=== PATIENT | female | born 1995 | race Caucasian/White ===

== ENCOUNTER 2016-08-26 17:02 | Emergency (ER) | payer OTHER ==
[~2016-08-26] VITALS: Ht 157.4 cm; Wt 49.9 kg
[~2016-08-26 17:02] MED LIST: ALAVERT10 MG PO; ALBUTEROL0.09 MG/A2 INH; AMPHETAMINE SAL15 M1 PO; AMPHETAMINE/DEX20 MG PO; AVPAK AZITHROM250 M1 PO; BACITRACIN 5003.5 GM; BIRTH CONTROL1 EAC1 PO; COLACE100 MG PO; DOXYCYCLINE100 M3 PO; FEOSOL300 MG PO; FLAGYL500 MG PO; FLONASE 0.05% 121 EA NAS; IBUPROFEN600 MG PO; KEFLEX500 MG PO; MACROBID100 M1 PO; NITROFURANTOIN100 MG PO; OMNICEF300 MG PO; PERCOCET 325 MG1 TA2 PO; PERCOCET 325 MG1 TA7 PO; PREDNICOT20 MG PO; PRENATAL1 TA1 PO; PROTONIX40 MG PO; PYRIDIUM100 MG PO; PYRIDIUM200 MG PO; Percocet 325 MG1 TAB PO; VIBRAMYCIN100 MG PO; VICODIN 5/500 505 MG PO; ZITHROMAX Z PA250 MG PO; ZOVIRAX800 MG PO; ZYRTEC10 MG PO; Zofran4 MG PO
[2016-08-26 17:34] LABS: BASO % 0.8 % (0.0-1.0); EOS # 0.2 10*3/uL (0.0-0.4); EOS % 4.5 % (1.0-4.0); HEMATOCRIT 41.8 % (37.0-47.0); HEMOGLOBIN 14.1 g/dl (12.0-16.0); LYMPH # 1.9 10*3/uL (1.3-4.4); LYMPH % 35.4 % (27.0-41.0); MEAN CELL VOLUME 87.6 fl (81.0-99.0); MEAN CORPUSCULAR HGB 29.6 pg (27.0-31.0); MEAN CORPUSCULAR HGB CONC 33.7 g/dl (33.0-37.0); MEAN PLATELET VOLUME 10.1 fl (9.6-12.3); MONO # 0.3 10*3/uL (0.1-1.0); MONO % 6.4 % (3.0-9.0); NEUT # 2.8 10*3/uL (2.3-7.9); NEUT % 52.7 % (47.0-73.0); PLATELET COUNT AUTOMATED 168 10*3/uL (130-400); RED BLOOD COUNT 4.77 10*6/uL (4.10-5.10); RED CELL DISTRI WIDTH 11.8 % (0-14.5); WHITE BLOOD COUNT 5.3 10*3/uL (4.8-10.8)
[2016-08-26 17:51] LABS: ALBUMIN 3.8 gm/dl (3.1-4.5); ALKALINE PHOSPHATASE 87 U/L (45-117); BILIRUBIN, TOTAL 0.2 mg/dl (0.2-1.0); BUN 18 mg/dl (7-24); CARBON DIOXIDE 28 mmol/L (21-32); CHLORIDE 105 mmol/L (98-107); EST GLOM FILT AFRICAN AMERICAN > 60 ml/min; GLUCOSE 94 mg/dL (65-99); POTASSIUM 3.7 mmol/L (3.5-5.1); SGOT/AST 18 IU/L (3-35); SGPT/ALT 15 U/L (12-78); SODIUM 140 mmol/L (136-145); TOTAL PROTEIN 7.2 gm/dL (6.4-8.2)
[2016-08-26 18:36] LABS: BILIRUBIN NEGATIVE (NEGATIVE); BLOOD NEGATIVE (NEGATIVE); CLARITY CLEAR (CLEAR); COLOR YELLOW (YELLOW); GLUCOSE NEGATIVE (NEGATIVE); KETONE NEGATIVE (NEGATIVE); LEUKO ESTERASE NEGATIVE (NEGATIVE); NITRITE NEGATIVE (NEGATIVE); PROTEIN NEGATIVE (NEGATIVE); UROBILINOGEN 0.2 E.U./dl (0.2-1.0)
[2016-08-26 18:46] LABS: BACTERIA 2+; WBC 0-2 wbc/hpf (0-5)
[2016-08-26 18:47] LABS: URINE REFLEX COMMENT YES (NO)
== END 2016-08-26 19:49 | disposition home or self-care (01) ==
LOC: ED 17:02
PROVIDERS: Registered Nurse
DX: R19.5 Other fecal abnormalities (principal); R10.30 Lower abdominal pain, unspecified; F17.200 Nicotine dependence, unspecified, uncomplicated; Z88.0 Allergy status to penicillin; Z88.1 Allergy status to other antibiotic agents; Z88.2 Allergy status to sulfonamides; Z88.6 Allergy status to analgesic agent; Z88.8 Allergy status to other drugs, medicaments and biological substances

== ENCOUNTER 2017-01-19 04:29 | Inpatient (IN) | payer OTHER ==
[~2017-01-19] VITALS: Ht 157.4 cm; Wt 46.0 kg
[2017-01-19] VITALS (11 sets, daily range): BP systolic 96–137; BP diastolic 46–90
--- NOTE | ~2017-01-19 | O ---
[place], [place] OPERATIVE NOTE [facility]: [id number] UNIT #: [id number] ROOM: 408 DOCTOR: HEATH PANTOJA MD BIRTHDATE: [birth year] DOS: 01/19/2017 INDICATIONS: The patient is a 21-year-old was presented with nausea, vomiting, undergoing investigation. Her basic studies have been negative. No acute findings on radiologic and laboratory results. Today, the patient has been on power drinks, sodas, and smoking. PROCEDURE: Today's procedure part of investigation is panendoscopy plus biopsy. PREMEDICATION: Versed and Diprivan. SCOPE: Olympus forward-viewing gastroscope Q10 video. REPORT: After putting the patient in left lateral position and application of lubricant to the scope, the scope was introduced. Thereafter, under direct visualization, advanced through the length of esophagus without difficulty. Esophagus and cervicothoracic were careful examined. Gastric pouch was entered. Gastritis was seen. Duodenal bulb, second and third part within normal limits. Small hiatal hernia about 1.5 cm was noticed. Otherwise, no acute pathology. The patient extubated, tolerated procedure well. IMPRESSION: Gastritis, small hiatal hernia. PLAN AND DISCUSSION: Omeprazole 20 mg 1 every day, would suffice management. The patient to abstain from power drink consumption and follow up as outpatient. HEATH PANTOJA MD CM:OPRECORD:OPERATIVE NOTE 1307 1327 HEATH PANTOJA MD 01/19/17 1328 interface
--- NOTE | ~2017-01-19 | CON ---
[place], [place] REPORT OF CONSULTATION [id number] UNIT #: [id number] ROOM: 408 DOCTOR: HEATH PANTOJA MD BIRTHDATE: [birth year] DOS: 01/19/2017 HISTORY OF PRESENT ILLNESS: This is a 21-year-old patient who has presented with chief complaint of nausea, vomiting, epigastric distress which has persisted. She is still nauseated. She has been on Zofran and Protonix therapy. The patient had to be admitted for definitive evaluation. PAST MEDICAL HISTORY: Associated with nonspecific abdominal pain. PAST SURGICAL HISTORY: None. ALLERGIES: PENICILLIN, SULFA, ANTIBIOTIC, HYDROCODONE, CIPROFLOXACIN, BENZOCAINE. SOCIAL HISTORY: Smoker, nonalcohol consumer, drinks energy drink daily and soda along with meals. HOME MEDICATIONS: Z-APOLONIA as well as amphetamine and dextroamphetamine combination. FAMILY HISTORY: Noncontributory. REVIEW OF SYSTEMS: HEENT: Denies double vision, blurred vision. RESPIRATORY: Denies shortness of breath. CARDIOVASCULAR: Denies chest pain. DIGESTIVE SYSTEM: Nausea, vomiting, epigastric distress. Abdominal pain. PHYSICAL EXAMINATION: VITAL SIGNS: Stable. HEENT: Head normocephalic, nontraumatic. Mouth and buccal mucosa benign. NECK: Supple, no thyromegaly, no cervical lymphadenopathy. CHEST: Symmetric anatomy, equal expansion. No wheeze, no rhonchi. HEART: Normal sinus rhythm, no gallop or murmur. ABDOMEN: Soft. No hepato-organomegaly. Bowel sounds present. No epigastric pain. EXTREMITIES: No cyanosis, no pedal edema. NEUROLOGIC: Alert, oriented to time, place, person. IMPRESSION: Nausea, vomiting, epigastric distress, could be secondary to the antibiotic and energy drink and carbonated beverages as well as medications that she is taking. PLAN AND DISCUSSION: We are going to organize endoscopic assessment of the upper GI tract and based on the findings, we will make arrangement for discharge or otherwise. The patient's records and labs and radiologic studies have been reviewed. CT scan of the abdomen, urinalysis, CBC, chemistry, gallbladder sonogram, all have been unremarkable as far as indicating any acute pathology. Her beta-hCG has been negative. Therefore, we will proceed with endoscopy. [place], [place] REPORT OF CONSULTATION NAME: NORI PATTERSON UNIT #: [id number] ROOM: 408 DOCTOR: SCARLETT COOPER,HEATH BIRTHDATE: [birth year] HEATH PANTOJA MD CM:CONSTR:REPORT OF CONSULTATION 1249 01/19/17 1635 interface
--- NOTE | 2017-01-19 05:20 | NUR ---
PT HAD 50ML EMESIS OF CLEAR GREEN LIQUID AND WATERY STOOLS IN BATHROOM. WILL CONTINUE TO MONITOR.
[2017-01-19 05:27] LABS: BILIRUBIN 1+ (NEGATIVE); BLOOD NEGATIVE (NEGATIVE); CLARITY CLOUDY (CLEAR); COLOR YELLOW (YELLOW); GLUCOSE NEGATIVE (NEGATIVE); KETONE TRACE (NEGATIVE); LEUKO ESTERASE TRACE (NEGATIVE); NITRITE NEGATIVE (NEGATIVE); SPECIFIC GRAVITY >= 1.030 (1.005-1.030); UROBILINOGEN 0.2 E.U./dl (0.2-1.0)
[2017-01-19 05:27] LABS: HEMATOCRIT 48.3 % (37.0-47.0); HEMOGLOBIN 16.3 g/dl (12.0-16.0); MEAN CELL VOLUME 89.6 fl (81.0-99.0); MEAN CORPUSCULAR HGB 30.2 pg (27.0-31.0); MEAN CORPUSCULAR HGB CONC 33.7 g/dl (33.0-37.0); MEAN PLATELET VOLUME 9.7 fl (9.6-12.3); PLATELET COUNT AUTOMATED 153 10*3/uL (130-400); RED BLOOD COUNT 5.39 10*6/uL (4.10-5.10); RED CELL DISTRI WIDTH 12.4 % (0-14.5); WHITE BLOOD COUNT 11.3 10*3/uL (4.8-10.8)
[2017-01-19 05:34] LABS: BACTERIA 3+; EPITHELIAL CELLS 35-40
[2017-01-19 05:45] LABS: ALBUMIN 4.4 gm/dl (3.1-4.5); ALKALINE PHOSPHATASE 105 U/L (45-117); BUN 14 mg/dl (7-24); CHLORIDE 105 mmol/L (98-107); CREATININE 0.89 mg/dL (0.55-1.02); LIPASE 125 U/L (73-393); SGOT/AST 18 IU/L (3-35); SGPT/ALT 21 U/L (12-78); SODIUM 141 mmol/L (136-145); TOTAL PROTEIN 7.9 gm/dL (6.4-8.2)
--- NOTE | 2017-01-19 05:45 | NUR ---
PT STATES NAUSEA HAS DECREASED SOME BUT SHE IS STILL FEELING NAUSEATED.
[2017-01-19 05:46] LABS: PLATELET SUFFICIENCY NORMAL (NORMAL); TOTAL CELLS COUNTED 100 #CELLS
--- NOTE | 2017-01-19 06:19 | NUR ---
PT CONTINUES TO FEEL NAUSEATED AND HAS "WEIRD FEELING IN THROAT." COUGHING CONTINUOUSLY.
--- NOTE | 2017-01-19 06:55 | NUR ---
PT STATES SHE IS FEELING BETTER AT THIS TIME.
--- NOTE | 2017-01-19 07:32 | NUR ---
PT RESTING QUIETLY,NO C/O.VITALS STABLE---LIANNE RODRIGUEZ RN
--- NOTE | 2017-01-19 08:42 | NUR ---
PT TO ULTRASOUND AT THIS TIME----LIANNE RODRIGUEZ RN
--- NOTE | 2017-01-19 09:22 | NUR ---
PT RESTING AT THIS TIME.SHE IS BEING ADMITTED.--LIANNE RODRIGUEZ RN
--- NOTE | 2017-01-19 09:44 | NUR ---
Time: 929 A 21 year old FEMALE admitted to under services of CINDY BELCHER DO, Pt. arrived via OTHER from ER. Chief complaint: DAPHNE MOSER
--- NOTE | 2017-01-19 10:13 | NUR ---
DR. PANTOJA NOTIFIED OF PATIENT CONSULT. THE ORDERED A BETA HCG TEST AND STATED TO NOTIFY HIM OF THE RESULTS. HE ALSO ORDERED THE PATIENT TO BE NPO FOR POSSIBLE EGD. NO OTHER CONCERNS FROM THE DOCTOR.
--- NOTE | 2017-01-19 12:27 | NUR ---
PT LEFT FLOOR FOR EGD.
--- NOTE | 2017-01-19 13:37 | NUR ---
SURGERY CALLED AND STATED THAT THE PATIENT'S EGD WAS COMPLETED. SEE DR. PANTOJA'S NOTES FOR DIAGNOSIS. SCRIPT LEFT IN PATIENTS CHART. PATIENT CLEARED FOR DISCHARGE FROM DR. PANTOJA. ROSA LOYD NP NOTIFIED.
[2017-01-19] MEDS ORDERED: ZOFRAN ODT4 MG SL (14:42)
--- NOTE | 2017-01-19 15:54 | NUR ---
Discharge instructions reviewed with patient/family. Patient receptive and verbalizes understanding. Follow-up care arranged. Written instructions given to patient/family. DAPHNE SCHROEDER
== END 2017-01-19 15:56 | disposition home or self-care (01) | DRG 392 ==
LOC: ED 04:29 → EDHOLD 08:19 → 4E 08:22
PROVIDERS: Emergency Medicine Emergency Medical Services; ADMIT Internal Medicine
PROC: 0DB68ZX Excision of Stomach, Via Natural or Artificial Opening Endoscopic, Diagnostic (ICD-10-PCS; principal; 2017-01-19)
DX: K29.70 Gastritis, unspecified, without bleeding (principal); F17.200 Nicotine dependence, unspecified, uncomplicated; M54.5 Low back pain; R82.71 Bacteriuria; R73.9 Hyperglycemia, unspecified; K44.9 Diaphragmatic hernia without obstruction or gangrene; Z88.8 Allergy status to other drugs, medicaments and biological substances; Z88.2 Allergy status to sulfonamides; Z79.899 Other long term (current) drug therapy; Z82.49 Family history of ischemic heart disease and other diseases of the circulatory system; Z82.3 Family history of stroke; Z88.0 Allergy status to penicillin

== ENCOUNTER → 2017-07-13 | Outpatient (CLI) | payer OTHER ==
[~2017-07-13] MED LIST changes: +ZOFRAN ODT4 MG SL
[2017-07-13 10:10] LABS: HEMATOCRIT 44.4 % (37.0-47.0); HEMOGLOBIN 14.7 g/dl (12.0-16.0); MEAN CELL VOLUME 87.7 fl (81.0-99.0); MEAN CORPUSCULAR HGB 29.1 pg (27.0-31.0); MEAN CORPUSCULAR HGB CONC 33.1 g/dl (33.0-37.0); MEAN PLATELET VOLUME 9.7 fl (9.6-12.3); RED BLOOD COUNT 5.06 10*6/uL (4.10-5.10); WHITE BLOOD COUNT 5.1 10*3/uL (4.8-10.8)
[2017-07-13 10:40] LABS: ALBUMIN 4.3 gm/dl (3.1-4.5); ALKALINE PHOSPHATASE 101 U/L (45-117); BUN 18 mg/dl (7-24); CHLORIDE 105 mmol/L (98-107); CHOLESTEROL 142 mg/dL (<200); CREATININE 0.76 mg/dL (0.55-1.02); HDL CHOLESTEROL 61 mg/dl (40-60); LDL CHOLESTEROL 62 mg/dL (9-159); SGOT/AST 19 IU/L (3-35); SGPT/ALT 19 U/L (12-78); SODIUM 138 mmol/L (136-145); TOTAL PROTEIN 7.6 gm/dL (6.4-8.2); TRIGLYCERIDES 95 mg/dl (<150); VLDL CHOLESTEROL 19 mg/dL (6-40)
== END | disposition home or self-care (01) ==
LOC: LAB 09:48
PROVIDERS: Family Medicine
DX: Z13.220 Encounter for screening for lipoid disorders (principal); E55.9 Vitamin D deficiency, unspecified; R53.83 Other fatigue; B37.3 Candidiasis of vulva and vagina; R79.89 Other specified abnormal findings of blood chemistry

== ENCOUNTER → 2017-08-24 | Outpatient (CLI) | payer OTHER ==
[2017-08-24 17:41] LABS: HEMOGLOBIN 14.2 g/dl (12.0-16.0); MEAN CELL VOLUME 90.9 fl (81.0-99.0); MEAN PLATELET VOLUME 9.7 fl (9.6-12.3); RED BLOOD COUNT 4.73 10*6/uL (4.10-5.10); RED CELL DISTRI WIDTH 12.1 % (0-14.5); WHITE BLOOD COUNT 7.5 10*3/uL (4.8-10.8)
[2017-08-24 17:57] LABS: ALBUMIN 4.4 gm/dl (3.1-4.5); ALKALINE PHOSPHATASE 89 U/L (45-117); BUN 15 mg/dl (7-24); CHLORIDE 108 mmol/L (98-107); CREATININE 0.67 mg/dL (0.55-1.02); POTASSIUM 3.8 mmol/L (3.5-5.1); SGOT/AST 17 IU/L (3-35); SGPT/ALT 17 U/L (12-78); SODIUM 141 mmol/L (136-145); TOTAL PROTEIN 7.2 gm/dL (6.4-8.2)
== END | disposition home or self-care (01) ==
LOC: LAB 16:59
PROVIDERS: Family Medicine
DX: E22.1 Hyperprolactinemia (principal)

== ENCOUNTER 2017-09-16 21:17 | Emergency (ER) | payer OTHER ==
[~2017-09-16] VITALS: Ht 157.4 cm; Wt 54.4 kg
[2017-09-16 21:37] LABS: BILIRUBIN NEGATIVE (NEGATIVE); BLOOD NEGATIVE (NEGATIVE); CLARITY CLEAR (CLEAR); COLOR YELLOW (YELLOW); GLUCOSE NEGATIVE (NEGATIVE); KETONE NEGATIVE (NEGATIVE); LEUKO ESTERASE NEGATIVE (NEGATIVE); NITRITE NEGATIVE (NEGATIVE); SPECIFIC GRAVITY >= 1.030 (1.005-1.030); UROBILINOGEN 0.2 E.U./dl (0.2-1.0)
[2017-09-16 21:45] LABS: BACTERIA 1+; EPITHELIAL CELLS 0-2; MUCOUS TRACE; RBC 0-2 rbc/hpf (0-2); WBC 0-2 wbc/hpf (0-5)
[2017-09-16 22:27] LABS: BASO # 0.1 10*3/uL (0.0-0.1); BASO % 0.8 % (0.0-1.0); EOS # 0.2 10*3/uL (0.0-0.4); EOS % 3.5 % (1.0-4.0); HEMATOCRIT 43.2 % (37.0-47.0); HEMOGLOBIN 14.2 g/dl (12.0-16.0); LYMPH # 2.3 10*3/uL (1.3-4.4); LYMPH % 37.8 % (27.0-41.0); MEAN CELL VOLUME 89.1 fl (81.0-99.0); MEAN CORPUSCULAR HGB 29.3 pg (27.0-31.0); MEAN CORPUSCULAR HGB CONC 32.9 g/dl (33.0-37.0); MEAN PLATELET VOLUME 9.8 fl (9.6-12.3); MONO # 0.4 10*3/uL (0.1-1.0); MONO % 6.7 % (3.0-9.0); NEUT # 3.1 10*3/uL (2.3-7.9); PLATELET COUNT AUTOMATED 152 10*3/uL (130-400); RED BLOOD COUNT 4.85 10*6/uL (4.10-5.10); RED CELL DISTRI WIDTH 11.9 % (0-14.5); WHITE BLOOD COUNT 6.1 10*3/uL (4.8-10.8)
[2017-09-16 22:42] LABS: ALBUMIN 4.5 gm/dl (3.1-4.5); ALKALINE PHOSPHATASE 84 U/L (45-117); BUN 14 mg/dl (7-24); CHLORIDE 104 mmol/L (98-107); CREATININE 0.81 mg/dL (0.55-1.02); LIPASE 102 U/L (73-393); POTASSIUM 3.8 mmol/L (3.5-5.1); SGOT/AST 18 IU/L (3-35); SGPT/ALT 17 U/L (12-78); SODIUM 140 mmol/L (136-145); TOTAL PROTEIN 7.4 gm/dL (6.4-8.2)
[2017-09-16 22:44] LABS: B-hCG (QUALITATIVE) NEGATIVE (NEGATIVE)
== END 2017-09-17 01:44 | disposition home or self-care (01) ==
LOC: ED 21:17
PROVIDERS: Emergency Medicine Emergency Medical Services; Physician Assistant
DX: R10.2 Pelvic and perineal pain (principal); R11.0 Nausea; G89.29 Other chronic pain; Z79.899 Other long term (current) drug therapy; Z88.0 Allergy status to penicillin; Z88.2 Allergy status to sulfonamides; Z88.8 Allergy status to other drugs, medicaments and biological substances; Z88.1 Allergy status to other antibiotic agents

== ENCOUNTER → 2017-09-20 | Outpatient (CLI) | payer OTHER ==
[~2017-09-20] MED LIST changes: +PROVENTIL HFA6.7 GM INH; +ZITHROMAX500 MG PO
== END | disposition home or self-care (01) ==
LOC: US 13:57
DX: R10.2 Pelvic and perineal pain (principal)

== ENCOUNTER 2017-10-08 15:25 | Emergency (ER) | payer OTHER ==
[~2017-10-08] VITALS: Ht 157.4 cm; Wt 54.4 kg
[~2017-10-08 15:25] MED LIST changes: -PROVENTIL HFA6.7 GM INH; -ZITHROMAX500 MG PO
[2017-10-08] MEDS ORDERED: PROVENTIL HFA6.7 GM INH (16:21)
[2017-10-08] MEDS ORDERED: ZITHROMAX500 MG PO (16:21)
== END 2017-10-08 16:24 | disposition home or self-care (01) ==
LOC: ED 15:25
DX: J40 Bronchitis, not specified as acute or chronic (principal); R11.0 Nausea; R07.89 Other chest pain; Z79.899 Other long term (current) drug therapy; Z79.2 Long term (current) use of antibiotics; Z88.0 Allergy status to penicillin; Z88.2 Allergy status to sulfonamides; Z88.1 Allergy status to other antibiotic agents; Z88.8 Allergy status to other drugs, medicaments and biological substances

== ENCOUNTER 2018-03-28 10:41 | Emergency (ER) | payer OTHER ==
[~2018-03-28] VITALS: Wt 61.2 kg
--- NOTE | ~2018-03-28 | EKG ---
[place], [place] ELECTROCARDIOGRAM REPORT NAME: NORI PATTERSON UNIT #: [id number] ROOM: DOCTOR: EPIPHANY DRAFT REPORT BIRTHDATE: [birth year] [facility] Test Date: 2018-03-28 Test Time: 13:18:29 Pat Name: NORI PATTERSON Department: Room: Gender: F Ultrasound Spec: YAW : 1995 Requested By: ANASTASIIA JOHNSON Order Number: [id number] Reading MD: Phyllis Harris MD Measurements Intervals [place] Rate: 112 P: 58 UT: 160 QRS: 36 QRSD: 80 T: 11 QT: 326 QTc: 445 Interpretive Statements Sinus tachycardia Borderline low voltage, extremity leads Flat T waves in V3-6 Baseline wander in lead(s) V2 Electronically Signed On 03-31-2018 9:38:54 PST by Phyllis Harris MD CM:EKGRPT:ELECTROCARDIOGRAM REPORT 1318 0938 ANASTASIIA JOHNOSN EPIPHANY DRAFT REPORT ANASTASIIA JOHNSON
[~2018-03-28 10:41] MED LIST changes: +PROVENTIL HFA6.7 GM INH; +ZITHROMAX500 MG PO
[2018-03-28 11:14] LABS: HEMATOCRIT 39.9 % (37.0-47.0); HEMOGLOBIN 13.5 g/dl (12.0-16.0); MEAN CELL VOLUME 88.5 fl (81.0-99.0); MEAN CORPUSCULAR HGB 29.9 pg (27.0-31.0); MEAN CORPUSCULAR HGB CONC 33.8 g/dl (33.0-37.0); MEAN PLATELET VOLUME 9.4 fl (9.6-12.3); PLATELET COUNT AUTOMATED 143 10*3/uL (130-400); RED BLOOD COUNT 4.51 10*6/uL (4.10-5.10); WHITE BLOOD COUNT 8.1 10*3/uL (4.8-10.8)
[2018-03-28 11:33] LABS: PLATELET SUFFICIENCY NORMAL (NORMAL); TOTAL CELLS COUNTED 100 #CELLS
[2018-03-28 11:35] LABS: ALBUMIN 3.9 gm/dl (3.1-4.5); ALKALINE PHOSPHATASE 83 U/L (45-117); BUN 16 mg/dl (7-24); CHLORIDE 110 mmol/L (98-107); CREATININE 0.76 mg/dL (0.55-1.02); POTASSIUM 3.7 mmol/L (3.5-5.1); SGOT/AST 12 IU/L (3-35); SGPT/ALT 15 U/L (12-78); SODIUM 143 mmol/L (136-145); TOTAL PROTEIN 6.6 gm/dL (6.4-8.2)
[2018-03-28] MEDS ORDERED: PREDNISONE50 MG PO (15:04)
[2018-03-28] MEDS ORDERED: FLONASE ALLERG9.9 ML NAS (15:04)
[2018-03-28] MEDS ORDERED: ZYRTEC10 M3 PO (15:04)
== END 2018-03-28 15:43 | disposition home or self-care (01) ==
LOC: ED 10:41
PROVIDERS: Nurse Practitioner Family
DX: B34.9 Viral infection, unspecified (principal); R51 Headache; R05 Cough; R19.7 Diarrhea, unspecified; Z88.0 Allergy status to penicillin; Z88.2 Allergy status to sulfonamides; Z88.1 Allergy status to other antibiotic agents; Z88.8 Allergy status to other drugs, medicaments and biological substances; Z88.4 Allergy status to anesthetic agent; Z79.899 Other long term (current) drug therapy

== ENCOUNTER → 2018-06-07 | Outpatient (CLI) | payer OTHER ==
[~2018-06-07] MED LIST changes: +BENADRYL ALLERG25 M5 PO; +CEPHALEXIN500 M1 PO; +FLONASE ALLERG9.9 ML NAS; +PREDNISONE50 MG PO; +ZYRTEC10 M3 PO
[2018-06-07 08:58] LABS: HEMATOCRIT 41.5 % (37.0-47.0); HEMOGLOBIN 13.9 g/dl (12.0-16.0); MEAN CELL VOLUME 88.7 fl (81.0-99.0); MEAN CORPUSCULAR HGB 29.7 pg (27.0-31.0); MEAN CORPUSCULAR HGB CONC 33.5 g/dl (33.0-37.0); MEAN PLATELET VOLUME 9.6 fl (9.6-12.3); RED BLOOD COUNT 4.68 10*6/uL (4.10-5.10); RED CELL DISTRI WIDTH 12.1 % (0-14.5); WHITE BLOOD COUNT 3.8 10*3/uL (4.8-10.8)
[2018-06-07 09:18] LABS: ALBUMIN 3.8 gm/dl (3.1-4.5); ALKALINE PHOSPHATASE 87 U/L (45-117); BUN 17 mg/dl (7-24); CHLORIDE 109 mmol/L (98-107); POTASSIUM 4.2 mmol/L (3.5-5.1); SGOT/AST 13 IU/L (3-35); SGPT/ALT 15 U/L (12-78); SODIUM 140 mmol/L (136-145); TOTAL PROTEIN 6.7 gm/dL (6.4-8.2)
[2018-06-07 09:26] LABS: B-hCG (QUALITATIVE) NEGATIVE (NEGATIVE)
[2018-06-07 10:19] LABS: VITAMIN D, 25-HYDROXY 41.8 ng/mL (30-100)
== END | disposition home or self-care (01) ==
LOC: LAB 08:28
PROVIDERS: Family Medicine
DX: N91.2 Amenorrhea, unspecified (principal); R07.9 Chest pain, unspecified; R53.83 Other fatigue

== ENCOUNTER → 2018-07-14 | Outpatient (CLI) | payer OTHER | END | disposition home or self-care (01) | LOC: RAD 08:43 | DX: K21.9 Gastro-esophageal reflux disease without esophagitis (principal); K29.70 Gastritis, unspecified, without bleeding ==

== ENCOUNTER 2018-08-01 14:13 | Emergency (ER) | payer OTHER ==
[~2018-08-01] VITALS: Ht 157.4 cm; Wt 59.0 kg
[~2018-08-01 14:13] MED LIST changes: -BENADRYL ALLERG25 M5 PO; -CEPHALEXIN500 M1 PO
[2018-08-01 14:48] LABS: BASO % 0.5 % (0.0-1.0); EOS # 0.1 10*3/uL (0.0-0.4); EOS % 1.5 % (1.0-4.0); HEMATOCRIT 42.6 % (37.0-47.0); HEMOGLOBIN 14.7 g/dl (12.0-16.0); LYMPH # 1.7 10*3/uL (1.3-4.4); LYMPH % 20.9 % (27.0-41.0); MEAN CORPUSCULAR HGB 30.4 pg (27.0-31.0); MEAN CORPUSCULAR HGB CONC 34.5 g/dl (33.0-37.0); MEAN PLATELET VOLUME 9.6 fl (9.6-12.3); MONO # 0.5 10*3/uL (0.1-1.0); MONO % 6.5 % (3.0-9.0); NEUT # 5.8 10*3/uL (2.3-7.9); NEUT % 70.4 % (47.0-73.0); PLATELET COUNT AUTOMATED 159 10*3/uL (130-400); RED BLOOD COUNT 4.84 10*6/uL (4.10-5.10); RED CELL DISTRI WIDTH 11.8 % (0-14.5); WHITE BLOOD COUNT 8.3 10*3/uL (4.8-10.8)
[2018-08-01 15:03] LABS: ALBUMIN 4.1 gm/dl (3.1-4.5); ALKALINE PHOSPHATASE 72 U/L (45-117); BUN 11 mg/dl (7-24); CHLORIDE 102 mmol/L (98-107); CREATININE 0.64 mg/dL (0.55-1.02); LIPASE 61 U/L (73-393); SGOT/AST 22 IU/L (3-35); SGPT/ALT 27 U/L (12-78); SODIUM 135 mmol/L (136-145); TOTAL PROTEIN 7.3 gm/dL (6.4-8.2)
[2018-08-01 17:22] LABS: BILIRUBIN NEGATIVE (NEGATIVE); BLOOD NEGATIVE (NEGATIVE); CLARITY CLEAR (CLEAR); COLOR YELLOW (YELLOW); GLUCOSE NEGATIVE (NEGATIVE); KETONE 3+ (NEGATIVE); LEUKO ESTERASE 1+ (NEGATIVE); NITRITE POSITIVE (NEGATIVE); PH 6.5 (5.0-9.0); SPECIFIC GRAVITY 1.025 (1.005-1.030); UROBILINOGEN 0.2 E.U./dl (0.2-1.0)
[2018-08-01 17:35] LABS: BACTERIA 4+
[2018-08-01] MEDS ORDERED: BENADRYL ALLERG25 M5 PO (17:57)
[2018-08-01] MEDS ORDERED: MACROBID100 M1 PO (17:57)
== END 2018-08-01 18:02 | disposition home or self-care (01) ==
LOC: ED 14:13
PROVIDERS: Nurse Practitioner Family
DX: O21.9 Vomiting of pregnancy, unspecified (principal); O23.41 Unspecified infection of urinary tract in pregnancy, first trimester; Z79.899 Other long term (current) drug therapy; Z88.0 Allergy status to penicillin; Z88.2 Allergy status to sulfonamides; Z88.1 Allergy status to other antibiotic agents; Z88.5 Allergy status to narcotic agent; Z3A.01 Less than 8 weeks gestation of pregnancy

== ENCOUNTER 2018-09-02 12:25 | Emergency (ER) | payer OTHER ==
[~2018-09-02] VITALS: Ht 157.4 cm; Wt 56.7 kg
[~2018-09-02 12:25] MED LIST changes: +BENADRYL ALLERG25 M5 PO
[2018-09-02] MEDS ORDERED: CEPHALEXIN500 M1 PO (13:00)
== END 2018-09-02 13:09 | disposition home or self-care (01) ==
LOC: ED 12:25
DX: O99.711 Diseases of the skin and subcutaneous tissue complicating pregnancy, first trimester (principal); L08.89 Other specified local infections of the skin and subcutaneous tissue; Z3A.13 13 weeks gestation of pregnancy; Z79.899 Other long term (current) drug therapy; Z88.0 Allergy status to penicillin; Z88.2 Allergy status to sulfonamides; Z88.8 Allergy status to other drugs, medicaments and biological substances

== ENCOUNTER → 2019-11-09 | Outpatient (CLI) | payer OTHER ==
[~2019-11-09] MED LIST changes: +CEPHALEXIN500 M1 PO
== END | disposition home or self-care (01) ==
LOC: COVID19 09:02
PROVIDERS: ATTEND Family Medicine
DX: Z11.59 Encounter for screening for other viral diseases (principal)

== ENCOUNTER 2019-12-24 18:42 | Emergency (ER) | payer OTHER ==
[~2019-12-24] VITALS: Ht 157.4 cm; Wt 72.6 kg
== END 2019-12-24 21:27 | disposition home or self-care (01) ==
LOC: ED 18:42
DX: S16.1XXA Strain of muscle, fascia and tendon at neck level, initial encounter (principal); S80.12XA Contusion of left lower leg, initial encounter; S00.83XA Contusion of other part of head, initial encounter; F17.200 Nicotine dependence, unspecified, uncomplicated; Z88.0 Allergy status to penicillin; Z88.2 Allergy status to sulfonamides; Z88.1 Allergy status to other antibiotic agents; Z88.8 Allergy status to other drugs, medicaments and biological substances; Z88.4 Allergy status to anesthetic agent; Z79.899 Other long term (current) drug therapy; V43.52XA Car driver injured in collision with other type car in traffic accident, initial encounter; Y93.89 Activity, other specified; Y92.89 Other specified places as the place of occurrence of the external cause; Y99.8 Other external cause status

== ENCOUNTER → 2020-03-11 | Outpatient (CLI) | payer OTHER | END | disposition home or self-care (01) | LOC: COVID19 14:48 | PROVIDERS: ATTEND Family Medicine | DX: Z20.822 Contact with and (suspected) exposure to COVID-19 (principal) ==

== ENCOUNTER → 2021-07-06 | Outpatient (CLI) | payer OTHER ==
[2021-07-06 11:21] LABS: MEAN CELL VOLUME 87.4 fl (81.0-99.0); MEAN CORPUSCULAR HGB 28.4 pg (27.0-31.0); MEAN CORPUSCULAR HGB CONC 32.4 g/dl (33.0-37.0); RED BLOOD COUNT 4.69 10*6/uL (4.10-5.10); RED CELL DISTRI WIDTH 12.6 % (0-14.5); WHITE BLOOD COUNT 8.4 10*3/uL (4.8-10.8)
[2021-07-06 11:40] LABS: BUN 19 mg/dl (7-24); CHLORIDE 106 mmol/L (98-107); CREATININE 1.02 mg/dL (0.55-1.02); LIPASE 104 U/L (73-393); POTASSIUM 3.9 mmol/L (3.5-5.1); SGOT/AST 11 IU/L (3-35); SGPT/ALT 15 U/L (12-78); SODIUM 141 mmol/L (136-145)
[2021-07-06 11:41] LABS: ALKALINE PHOSPHATASE 81 U/L (45-117)
== END | disposition home or self-care (01) ==
LOC: LAB 10:55
PROVIDERS: ATTEND Family Medicine
DX: Z00.00 Encounter for general adult medical examination without abnormal findings (principal); R10.9 Unspecified abdominal pain; E55.9 Vitamin D deficiency, unspecified; R10.816 Epigastric abdominal tenderness

== ENCOUNTER 2021-12-01 08:19 | Emergency (ER) | payer OTHER ==
[~2021-12-01] VITALS: Ht 157.4 cm; Wt 54.4 kg
[2021-12-01] MEDS ORDERED: VIBRA-TAB100 MG PO (13:11)
== END 2021-12-01 13:25 | disposition home or self-care (01) ==
LOC: ED 08:19
DX: J32.9 Chronic sinusitis, unspecified (principal); Z20.822 Contact with and (suspected) exposure to COVID-19; Z79.899 Other long term (current) drug therapy; Z88.0 Allergy status to penicillin; Z88.2 Allergy status to sulfonamides; Z88.5 Allergy status to narcotic agent

== ENCOUNTER → 2021-12-10 | Outpatient (CLI) | payer OTHER ==
[~2021-12-10] MED LIST changes: +VIBRA-TAB100 MG PO
[2021-12-10 16:11] LABS: HEMATOCRIT 45.4 % (37.0-47.0); MEAN CELL VOLUME 88.5 fl (81.0-99.0); MEAN CORPUSCULAR HGB 28.3 pg (27.0-31.0); MEAN CORPUSCULAR HGB CONC 31.9 g/dl (33.0-37.0); RED BLOOD COUNT 5.13 10*6/uL (4.10-5.10); RED CELL DISTRI WIDTH 12.7 % (0-14.5); WHITE BLOOD COUNT 7.8 10*3/uL (4.8-10.8)
[2021-12-10 16:31] LABS: VITAMIN D, 25-HYDROXY 44.2 ng/mL (30-100)
[2021-12-10 16:40] LABS: CHLORIDE 106 mmol/L (98-107); POTASSIUM 4.4 mmol/L (3.5-5.1); SGOT/AST 14 IU/L (3-35); SGPT/ALT 23 U/L (12-78); SODIUM 137 mmol/L (136-145)
[2021-12-10 16:41] LABS: ALKALINE PHOSPHATASE 99 U/L (45-117)
[2021-12-10 17:57] LABS: BUN 18 mg/dl (7-24); CHOLESTEROL 157 mg/dL (<200); CREATININE 0.93 mg/dL (0.55-1.02); FREE T4 0.87 ng/dl (0.76-1.46); LDL CHOLESTEROL 64 mg/dL (9-159); THYROID STIM HORMONE (HS) 0.697 uIU/ml (0.358-4.75); TRIGLYCERIDES 64 mg/dl (<150)
== END | disposition home or self-care (01) ==
LOC: LAB 15:22
PROVIDERS: ATTEND Family Medicine
DX: Z00.00 Encounter for general adult medical examination without abnormal findings (principal); R41.3 Other amnesia; E55.9 Vitamin D deficiency, unspecified; R00.2 Palpitations; R53.83 Other fatigue; R41.9 Unspecified symptoms and signs involving cognitive functions and awareness

== ENCOUNTER → 2021-12-31 | Outpatient (CLI) | payer OTHER | END | disposition home or self-care (01) | LOC: CT 11:00 | PROVIDERS: ATTEND Family Medicine | DX: R51.9 Headache, unspecified (principal) ==

== ENCOUNTER 2022-05-19 08:10 | Emergency (ER) | payer OTHER ==
[~2022-05-19] VITALS: Wt 52.2 kg
[2022-05-19 08:51] LABS: BILIRUBIN Negative (Negative); BLOOD Negative (Negative); CLARITY Clear (Clear); COLOR Yellow (Yellow); GLUCOSE Negative (Negative); KETONE Negative (Negative); LEUKO ESTERASE Negative (Negative); NITRITE Negative (Negative); UROBILINOGEN 0.2 E.U./dl (0.0-1.0)
[2022-05-19 09:01] LABS: BASO % 0.2 % (0.0-1.0); EOS # 0.1 10*3/uL (0.0-0.4); EOS % 1.4 % (1.0-4.0); HEMATOCRIT 43.5 % (37.0-47.0); LYMPH # 1.1 10*3/uL (1.3-4.4); LYMPH % 12.6 % (27.0-41.0); MEAN CELL VOLUME 88.2 fl (81.0-99.0); MEAN CORPUSCULAR HGB CONC 31.7 g/dl (33.0-37.0); MEAN PLATELET VOLUME 9.5 fl (9.6-12.3); MONO # 0.4 10*3/uL (0.1-1.0); MONO % 4.9 % (3.0-9.0); NEUT # 7.2 10*3/uL (2.3-7.9); NEUT % 80.8 % (47.0-73.0); PLATELET COUNT AUTOMATED 193 10*3/uL (130-400); RED BLOOD COUNT 4.93 10*6/uL (4.10-5.10); WHITE BLOOD COUNT 8.9 10*3/uL (4.8-10.8)
[2022-05-19 09:04] LABS: BACTERIA 4+
[2022-05-19 09:05] LABS: WBC 0-2 wbc/hpf (0-5)
[2022-05-19 09:16] LABS: ALKALINE PHOSPHATASE 77 U/L (46-116); BUN 16 mg/dl (9-23); CHLORIDE 104 mmol/L (98-107); LIPASE 32 U/L (12-53); POTASSIUM 4.1 mmol/L (3.4-5.1); SGPT/ALT 8 U/L (10-49); TOTAL PROTEIN 7.2 gm/dL (6.0-8.0)
[2022-05-19] MEDS ORDERED: Ondansetron4 MG PO (10:14)
== END 2022-05-19 10:28 | disposition home or self-care (01) ==
LOC: ED 08:10
PROVIDERS: Emergency Medicine
DX: R10.13 Epigastric pain (principal); J45.909 Unspecified asthma, uncomplicated; R11.0 Nausea; E16.2 Hypoglycemia, unspecified; Z88.0 Allergy status to penicillin; Z88.2 Allergy status to sulfonamides; Z88.5 Allergy status to narcotic agent; Z88.8 Allergy status to other drugs, medicaments and biological substances; Z88.1 Allergy status to other antibiotic agents

== ENCOUNTER 2023-03-08 19:56 | Emergency (ER) | payer OTHER ==
[~2023-03-08] VITALS: Ht 157.4 cm; Wt 72.6 kg
[~2023-03-08 19:56] MED LIST changes: +Ondansetron4 MG PO
[2023-03-08] MEDS ORDERED: CLINDAMYCIN HC300 MG PO (20:39)
== END 2023-03-08 20:43 | disposition home or self-care (01) ==
LOC: ED 19:56
DX: K04.7 Periapical abscess without sinus (principal); R73.9 Hyperglycemia, unspecified; J45.909 Unspecified asthma, uncomplicated; Z88.0 Allergy status to penicillin; Z88.2 Allergy status to sulfonamides; Z88.1 Allergy status to other antibiotic agents; Z88.8 Allergy status to other drugs, medicaments and biological substances

== ENCOUNTER 2023-04-25 04:10 | Emergency (ER) | payer OTHER ==
[~2023-04-25] VITALS: Ht 167.6 cm; Wt 55.3 kg
[~2023-04-25 04:10] MED LIST changes: +CLINDAMYCIN HC300 MG PO
== END 2023-04-25 05:42 | disposition home or self-care (01) ==
LOC: ED 04:10
DX: B34.9 Viral infection, unspecified (principal); Z20.822 Contact with and (suspected) exposure to COVID-19; J45.909 Unspecified asthma, uncomplicated; E16.2 Hypoglycemia, unspecified; Z88.0 Allergy status to penicillin; Z88.2 Allergy status to sulfonamides; Z88.8 Allergy status to other drugs, medicaments and biological substances; Z88.1 Allergy status to other antibiotic agents

== ENCOUNTER 2024-04-12 19:36 | Emergency (ER) | payer OTHER ==
[~2024-04-12] VITALS: Ht 157.4 cm; Wt 47.6 kg
[2024-04-12] MEDS ORDERED: methylPREDNISolone sod succ 125 MG VIAL IM ONE (20:20)
[2024-04-12] MEDS ORDERED: PREDNISONE10 MG PO (20:45)
== END 2024-04-12 21:26 | disposition home or self-care (01) ==
LOC: ED 19:36
DX: J98.4 Other disorders of lung (principal); J45.909 Unspecified asthma, uncomplicated; Z88.0 Allergy status to penicillin; Z88.2 Allergy status to sulfonamides; Z88.8 Allergy status to other drugs, medicaments and biological substances; Z88.1 Allergy status to other antibiotic agents; Z88.5 Allergy status to narcotic agent

== ENCOUNTER → 2024-07-11 | Outpatient (CLI) | payer OTHER ==
[~2024-07-11] MED LIST changes: +PREDNISONE10 MG PO
== END | disposition home or self-care (01) ==
LOC: MAMMO 08:50
PROVIDERS: ATTEND Nurse Practitioner
DX: R92.333 Mammographic heterogeneous density, bilateral breasts (principal); N63.0 Unspecified lump in unspecified breast